=== PATIENT | male | born 1995 | race African-American/Black ===

== ENCOUNTER 2018-12-06 00:07 | Inpatient (IN) | payer BC ==
[2018-12-06] VITALS (7 sets, daily range): BP systolic 100–132; BP diastolic 56–76
[~2018-12-06] VITALS: Ht 182.9 cm; Wt 73.5 kg
[~2018-12-06 00:07] MED LIST: DEPAKOTE500 MG PO; KEPPRA 500 MG500 M1 PO; LAMICTAL XR300 MG PO; LAMICTAL100 MG PO; METHYLPHENIDATE18 MG PO; MULTIVITAMINS1 EAC7 PO
[2018-12-06 00:36] LABS: ABSOLUTE EOSINOPHILS 0.1 thou/uL (0.0-0.7); ABSOLUTE LYMPHOCYTES 1.8 thou/uL (0.8-5.3); ABSOLUTE MONOCYTES 1.2 thou/uL (0.0-1.2); ABSOLUTE NEUTROPHILS 6.5 thou/uL (1.6-8.1); BASOPHILS 0.3 %; EOSINOPHILS 0.6 %; HEMATOCRIT 43.9 % (42.0-52.0); HEMOGLOBIN 14.5 gm/dL (14.0-18.0); LYMPHOCYTES 18.9 %; MCH 28.8 pg (26.0-34.0); MCHC 32.9 g/dL (28.0-37.0); MCV 87.6 fL (80.0-100.0); MONOCYTES 12.3 %; MPV 7.7 fl. (7.2-11.1); NUCLEATED RBCS 0 /100WBC; PLATELET COUNT* 342 thou/uL (150-400); POLYS 67.9 %; RBC 5.01 mil/uL (4.50-6.00); RDW-CV 13.6 % (10.5-14.5); WBC 9.5 thou/uL (4.0-11.0)
[2018-12-06 00:41] LABS: URINE BILIRUBIN NEGATIVE (Negative); URINE BLOOD NEGATIVE (Negative); URINE CLARITY CLEAR; URINE COLOR YELLOW; URINE GLUCOSE-RANDOM NEGATIVE (Negative); URINE KETONES TRACE (Negative); URINE LEUKOCYTES-REFLEX NEGATIVE (Negative); URINE NITRITE-REFLEX NEGATIVE (Negative); URINE PROTEIN 2+ (Negative); URINE SPECIFIC GRAVITY 1.025 (1.005-1.030); URINE UROBILINOGEN 0.2 E.U./dl (0.2-1.0)
[2018-12-06 00:51] LABS: CALCIUM 9.3 mg/dL (8.5-10.1); CREATININE 2.6 mg/dL (0.6-1.3); POTASSIUM 4.2 mmol/L (3.5-5.1)
[2018-12-06 00:51] LABS: SQUAMOUS 0-3 Few /LPF (0-3); URINE RBC 3-10 Few /HPF (0-2); WBC CLUMPS Few (None Seen)
[2018-12-06 00:52] LABS: BACTERIA-REFLEX >30 Many /HPF (None Seen); CRYSTALS None Seen /LPF (None Seen); FINE GRANULAR CASTS 0-3 Few /LPF (None Seen); HYALINE CASTS 4-10 Moderate /LPF (None Seen); MUCUS 4-6 Moderate strn/LPF (None Seen)
[2018-12-06 00:56] LABS: ALBUMIN 4.2 g/dL (3.4-5.0); TOTAL BILIRUBIN 0.3 mg/dL (<0.1-1.0); TOTAL PROTEIN 8.5 g/dL (6.4-8.2)
--- NOTE | 2018-12-06 03:40 | NUR ---
TRANSFER FROM ED. RECIEVED REPORT AND ASSUMED CARE AT 0220. SENIOR SQL DATABASE DEVELOPER IN PLACE. VITAL SIGNS ARE STABLE. PT IS UP ADLIB. PT DENIES ANY PAIN AT THIS TIME. PT DENIES ANY N/V AT THIS TIME. ASSESSMENT COMPLETED AND DISCUSSED PLAN OF CARE AND PT UNDERSTANDS. BED LOCKED AND CALL LIGHT WITHIN REACH. FALL PRECAUTIONS IN PLACE. HOURLY ROUNDING DONE AND ALL NEEDS MET. NURSING WILL CONTINUE TO MONITOR.
--- NOTE | 2018-12-06 07:20 | NUR ---
CHANGE OF SHIFT BEDSIDE REPORT GIVEN PATIENT SEEN AT BEDSIDE, IN BED ASLEEP ASSUMED PATIENT CARE
[2018-12-06] MEDS ORDERED: KEPPRA1000 MG PO ×2 (12:05→12:06)
--- NOTE | 2018-12-06 15:28 | NUR ---
CM completed initial assessment to [facility] d/c planning. Pt's mother present at time of assessment. pt has 0 DMEs. pt active and employeed. lives at home w/his parents, and reeives support from family. pt has no hx w/SNF or HH and does not anticipate needing either. Pt's mother's goal is to have physician reinterate the importance of medication compliance to the pt. CM to remain available to assist as needed.
[2018-12-07] VITALS: BP 105/70
[2018-12-07 04:00] VITALS: BP 111/66
--- NOTE | 2018-12-07 05:49 | NUR ---
VITALS WNL. SEE MAR. SEE CHARTING. HOURLY ROUNDING FOR SAFETY.
[2018-12-07 08:00] VITALS: BP 104/59
[2018-12-07 13:00] VITALS: BP 118/76
--- NOTE | 2018-12-07 14:28 | NUR ---
Nutrition: parents requsted info on healthy eating for pt, stated that they try to tell pt that he needs to eat better but doesn't listen. Explained to parents "readiness for change" in regards to acceptance of diet edu and that pt will not likely make changes unless he sees a need for it. Provided pt with handout and basic explaination of healthful diet guidelines and answered questions.
[2018-12-07 17:55] VITALS: BP 110/64
--- NOTE | 2018-12-07 18:24 | NUR ---
RECEIVED REPORT. ASSUMED CARE OF PT AROUND 0730. PT A&O X4. VSS. VEGETABLE WASHER IN PLACE TRACING SB TO SR WITH NO CHANGES THIS SHIFT. AM ASSESSMENT AND VITALS COMPLETED CHARTED. IV INTACT AND INFUSING IVF. PT HAS DENIED PAIN OR DISCOMFORT THIS SHIFT. VOIDING PER URINAL. PVR CHARTED. PT TOELRATING DIET. FAMILY VISITED THIS EVENING. BM THIS AM. PT STATES HE FEELS LIKE HE IS "BETTER". PT CURRENTLY RESTING IN BED. CALL LIGHT IS WITHIN REACH. LOW FALL RISK PRECAUTIONS ARE IN PLACE. HOURLY ROUNDING PERFORMED. WCTM FOR DURATION OF SHIFT.
[2018-12-07 20:00] VITALS: BP 154/73
[2018-12-08] VITALS: BP 117/84
[2018-12-08 04:00] VITALS: BP 121/72
[2018-12-08 05:48] LABS: CALCIUM 8.3 mg/dL (8.5-10.1); POTASSIUM 3.2 mmol/L (3.5-5.1)
[2018-12-08 05:50] LABS: CREATININE 1.1 mg/dL (0.6-1.3)
--- NOTE | 2018-12-08 06:10 | NUR ---
VITALS WNL. SEE MAR. SEE CHARTING. HOURLY ROUNDING FOR SAFETY.
[2018-12-08 08:00] VITALS: BP 120/78
[2018-12-08 14:51] VITALS: BP 114/63
[2018-12-08 16:00] VITALS: BP 98/78
--- NOTE | 2018-12-08 17:33 | NUR ---
I ASSUMED CARE OF THE PATIENT AT 0700. HE IS ALERT AND ORIENTED X4 AND IS UP SBA. I CALLED HIS PHARMACY AND VERIFIED HIS MEDS. HE DOES TAKE 2 DIFFERENT KEPRA'S AND 2 DIFFERENT LAMICTALS. HOURLY ROUNDING IS COMPLETED AND PATIENT NEEDS ARE MET. PAIN IS DENIED. BED IS THE LOW LOCKED POSITION AND CALL LIGHT IS IN REACH. CT STAT WAS COMPLETED. POST VOID RESIDUAL WAS 50. WILL CONTINUE TO MONITOR.
[2018-12-08 20:00] VITALS: BP 110/62
--- NOTE | 2018-12-09 07:30 | NUR ---
VITALS WNL. SEE MAR. SEE CHARTING. HOURLY ROUNDING FOR SAFETY.
[2018-12-09 08:00] VITALS: BP 150/65
--- NOTE | 2018-12-09 09:57 | NUR ---
PT INFORMED OF TRANSFER. REPORT CALLED TO DARRYL CARROLL. PT TRANSPORTED VIA
[2018-12-09 10:10] VITALS: BP 116/69
--- NOTE | 2018-12-09 10:10 | NUR ---
ASSUMED CARE OF PATIENT AT THIS TIME. PATIENT SETTLED TO ROOM. PTIENT DENIES ANY NEEDS AT THIS TIME. WILL CONTINUE TO MONITOR.
[2018-12-09 12:15] LABS: ABSOLUTE EOSINOPHILS 0.2 thou/uL (0.0-0.7); ABSOLUTE LYMPHOCYTES 2.4 thou/uL (0.8-5.3); ABSOLUTE MONOCYTES 0.5 thou/uL (0.0-1.2); ABSOLUTE NEUTROPHILS 1.2 thou/uL (1.6-8.1); BASOPHILS 0.7 %; EOSINOPHILS 4.7 %; HEMATOCRIT 37.8 % (42.0-52.0); HEMOGLOBIN 12.7 gm/dL (14.0-18.0); LYMPHOCYTES 55.5 %; MCH 28.9 pg (26.0-34.0); MCHC 33.6 g/dL (28.0-37.0); MCV 86.2 fL (80.0-100.0); MONOCYTES 11.9 %; MPV 7.7 fl. (7.2-11.1); NUCLEATED RBCS 0 /100WBC; PLATELET COUNT* 296 thou/uL (150-400); POLYS 27.2 %; RBC 4.38 mil/uL (4.50-6.00); RDW-CV 13.1 % (10.5-14.5); WBC 4.4 thou/uL (4.0-11.0)
[2018-12-09 12:33] LABS: ALBUMIN 3.1 g/dL (3.4-5.0); CALCIUM 8.7 mg/dL (8.5-10.1); CREATININE 1.1 mg/dL (0.6-1.3); MAGNESIUM 1.3 mg/dL (1.8-2.4); PHOSPHORUS* 3.8 mg/dL (2.5-4.9); POTASSIUM 3.3 mmol/L (3.5-5.1); TOTAL BILIRUBIN 0.2 mg/dL (<0.1-1.0); TOTAL PROTEIN 6.8 g/dL (6.4-8.2)
[2018-12-09 15:30] VITALS: BP 112/59
--- NOTE | 2018-12-09 16:28 | NUR ---
PATIENT RESTING IN BED. PATIENT IS UP AD JAMEL IN ROOM. PATIENT DENIES ANY PAIN. PATIENT IS TOLERATING REGULAR DIET. IV REPLACED PER PATIENT REQUEST. PATIENT DENIES ANY NEEDS AT THIS TIME. CALL LIGHT WITHIN REACH. WILL CONTINUE TO MONITOR.
[2018-12-09 20:25] VITALS: BP 104/55
[2018-12-10 04:34] LABS: HEMATOCRIT 38.5 % (42.0-52.0); HEMOGLOBIN 12.7 gm/dL (14.0-18.0); MCH 28.7 pg (26.0-34.0); MCHC 33.1 g/dL (28.0-37.0); MCV 86.7 fL (80.0-100.0); MPV 8.1 fl. (7.2-11.1); RBC 4.44 mil/uL (4.50-6.00); RDW-CV 12.9 % (10.5-14.5); WBC 4.5 thou/uL (4.0-11.0)
[2018-12-10 04:43] LABS: CALCIUM 9.1 mg/dL (8.5-10.1); CREATININE 1.1 mg/dL (0.6-1.3); MAGNESIUM 1.5 mg/dL (1.8-2.4); POTASSIUM 4.1 mmol/L (3.5-5.1)
--- NOTE | 2018-12-10 05:18 | NUR ---
PT STATES HE SLEPT OFF AND ON OVERNIGHT. UP AD JAMEL IN ROOM WITH STEADY GAIT. LFA IVF INFUSING PER PUMP, VOIDING WITHOUT DIFFICULTY. HAS DENIED PAIN OR PROBLEMS. MAG REPLACED AT HS, STILL LOW THIS MORNING SO DOSE WILL BE GIVEN. TOLERATING REGULAR DIET WITHOUT N/V. ABLE TO USE CALL LITE AND MAKE NEEDS KNOWN. HOPEFUL FOR DISCHARGE HOME TODAY.
[2018-12-10 08:30] VITALS: BP 111/60
[2018-12-10 11:43] VITALS: BP 111/60
--- NOTE | 2018-12-10 11:52 | CON ---
[address] [address] CONSULTATION Name: JUAN COTO Room: [address] [place] .#: [id number] Admission: 12/06/18 Attend Phys: Valery Stinson MD Discharge: Date of : 89 Report #: [id number] THIS REPORT FOR: //name// CC: Yamilex Camejoestephania Stinson DATE OF SERVICE: 12/09/2018 HISTORY OF PRESENT ILLNESS: This is a pleasant 23-year-old gentleman, with past medical history significant for epilepsy, who presented initially with seizures following cessation of his antiepileptic regimen for 2 days. GI service has been consulted for evaluation of possible enteritis. The patient's father is at bedside and he also provides part of history. The patient's father reports that the patient was convinced that his antiepileptic medication can be discontinued if he took marijuana and the patient began smoking marijuana about 2 years back. The patient smokes marijuana on a weekly basis. About 3 days back, he began experiencing nausea, vomiting and abdominal pain. The patient reports having about 7 or 8 episodes of emesis 3 days back, these have since resolved. The patient currently denies any significant abdominal pain, nausea, vomiting, diarrhea, hematemesis or hematochezia. PAST MEDICAL HISTORY: Seizure disorder. PAST SURGICAL HISTORY: Nonsignificant. FAMILY HISTORY: There is no family history of esophageal, gastric or colonic malignancies. SOCIAL HISTORY: The patient denies smoking or alcohol use, but does smoke marijuana. REVIEW OF SYSTEMS: A comprehensive 10-point review of systems is negative except for what is mentioned in the HPI. PHYSICAL EXAMINATION: VITAL SIGNS: Temperature 36.7, pulse rate 50, respirations 16, blood pressure 150/65. GENERAL: The patient is alert, awake, oriented x 3. HEENT: Pupils are equal, round, reactive to light and accommodation. Mucous membranes are moist. There is no congestion. LUNGS: Clear to auscultation bilaterally. CARDIOVASCULAR: Rate and rhythm regular, S1, S2 present. ABDOMEN: Soft. There is no distention, guarding or rigidity. EXTREMITIES: Warm and well perfused. There is no edema. LABORATORY DATA: Hemoglobin 12.7, hematocrit 37.8, platelet count 296, [place] [address] CONSULTATION Name: JUAN COTO Room: [address] [place] [facility]#: [id number] Admission: 12/06/18 Attend Phys: Valery Stinson MD Discharge: Date of : 89 Report #: [id number] count 4.4. Sodium 142, potassium 3.3, chloride 104, bicarbonate 34, BUN 5, creatinine 1.1, magnesium 1.3, AST 12, ALT 18, alkaline phosphatase 55, lipase 79. CT abdomen and pelvis performed on 12/08/2018, this demonstrates no CT evidence of appendicitis. Appendix remains gas filled and no evidence of appendiceal obstruction. Development of free pelvic fluid since prior study, which is abnormal in a male patient. Etiology is unclear. ASSESSMENT AND PLAN: A pleasant 23-year-old gentleman, with past medical history of seizure disorder, currently takes marijuana, is presenting with nausea, vomiting. The symptoms have resolved since hospitalization. This is either related to a nonspecific enteritis, which appears to have resolved at this time or the patient's marijuana use. I recommended cessation of marijuana use as it was associated with marijuana-induced hyperemesis syndrome. When the patient is able to tolerate a p.o. diet, he should be able to be discharged. No further recommendations at this time. <ELECTRONICALLY SIGNED> By: Aaron Hidalgo MD 12/10/18 1152 [id number] Hidalgo MD /nt
--- NOTE | 2018-12-10 13:16 | NUR ---
PATIENT HAS BEEN ALERT AND ORIENTED TODAY VERY PLEASANT. UP AD JAMEL IN ROOM, NO COMPLAINTS OF ANY KIND TODAY. VITAL SIGNS STABLE ON ROOM AIR. PATIENT IS BEING DISCHARGED TO HOME. DISCHARGE INSTRUCTIONS GIVEN AND QUESTIONS ANSWERED FOR PATIENT. LEFT VIA WHEEL CHAIR TO HOME.
[2018-12-10 13:23] VITALS: BP 111/60
== END 2018-12-10 13:28 | disposition home or self-care (01) | DRG 371 ==
LOC: M.ERS 00:07 → M.TBA-ER 01:50 → M.2W 01:50 → M.3W 12-09 10:13
PROVIDERS: Family Medicine; Internal Medicine; ADMIT Family Medicine
DX: A04.9 Bacterial intestinal infection, unspecified (principal); N17.0 Acute kidney failure with tubular necrosis; K65.9 Peritonitis, unspecified; N39.0 Urinary tract infection, site not specified; M62.82 Rhabdomyolysis; F12.90 Cannabis use, unspecified, uncomplicated; G40.409 Other generalized epilepsy and epileptic syndromes, not intractable, without status epilepticus; Z79.899 Other long term (current) drug therapy